=== PATIENT | female | born 1975 | race Caucasian/White ===

== ENCOUNTER 2024-12-26 03:05 | Emergency (ER) | payer OTHER ==
[2024-12-26 03:15] VITALS: BMI 29.2
[2024-12-26] MEDS ORDERED: ACETAMINOPHEN INJECTION 100 ML ONE (03:31)
[2024-12-26] MEDS ORDERED: CEFTRIAXONE 1 GM/50 ML BAG ONE (03:31)
[2024-12-26] MEDS: ACETAMINOPHEN 1000 MG/100 ML BAG IVPB ONE (03:54)
[2024-12-26 04:13] LABS: MCHC 33.4 g/dl (32.2-35.5); MEAN CELL VOLUME 93.1 fl (79.4-94.8); MEAN PLT VOLUME 9.6 fl (9.4-12.3); RDW 12.7 % (12.2-17.1)
[2024-12-26 04:17] LABS: EPI CELLS 3 /uL (0-25.1); HYALINE CASTS 0 /uL (0-3.1); URINE APPEARANCE CLOUDY; URINE BACTERIA >9,000 /uL (0-1359); URINE BILIRUBIN NEGATIVE (NEGATIVE); URINE COLOR YELLOW; URINE GLUCOSE (UA) NEGATIVE (NEGATIVE); URINE KETONE NEGATIVE (NEGATIVE); URINE LEUK ESTERASE 3+ (NEGATIVE); URINE NITRITE NEGATIVE (NEGATIVE); URINE PROTEIN TRACE (NEGATIVE); URINE RBC 30 /uL (0-23.9); URINE UROBILINOGEN 1.0 mg/dL (0.2-1.0); URINE WBC 747 /uL (0-25.8)
[2024-12-26 04:34] LABS: CO2 26.0 mmol/L (21-32); GLUCOSE,RANDOM 110.0 mg/dL (74-106)
[2024-12-26 04:37] LABS: CREATININE 0.7 mg/dL (0.55-1.3); SGOT/AST 17.0 U/L (15-37); SGPT/ALT 24.0 U/L (13-61)
[2024-12-26 04:39] LABS: TOT PROT 6.8 g/dl (6.4-8.2)
[2024-12-26 04:40] LABS: ALK PHOS 73.0 U/L (45-117)
[2024-12-26 05:06] VITALS: BP 122/70; PULSE 91; RESP 16
[2024-12-26 05:07] VITALS: TEMP 99.6
[2024-12-26 08:05] LABS: YEAST NONE SEEN (NEGATIVE)
== END 2024-12-26 05:42 | disposition home or self-care (01) ==
LOC: JER 03:05
PROC: 3E033NZ Introduction of Analgesics, Hypnotics, Sedatives into Peripheral Vein, Percutaneous Approach (ICD-10-PCS; principal; 2024-12-26)
PROC: 3E03329 Introduction of Other Anti-infective into Peripheral Vein, Percutaneous Approach (ICD-10-PCS; 2024-12-26)
DX: N30.00 Acute cystitis without hematuria (principal); R11.2 Nausea with vomiting, unspecified; R10.31 Right lower quadrant pain; R10.11 Right upper quadrant pain; R50.9 Fever, unspecified
CPT/HCPCS: 36415; 80053; 81003; 84703; 85025; 87086; 99283-25